=== PATIENT | female | born 1985 | race African-American/Black ===

== ENCOUNTER → 2018-02-21 | Outpatient (CLI) | payer MEDICAID ==
[2018-02-21 18:01] LABS: ABSOLUTE LYMPHOCYTES (AUTO) 1.9 10^3/uL (0.5-4.7); ABSOLUTE MONOCYTES (AUTO) 0.6 10^3/uL (0.1-1.4); ABSOLUTE NEUT (AUTO) 5.1 10^3/uL (1.7-8.2); BASOPHILS % (AUTO) 0.2 % (0-2); EOSINOPHILS % (AUTO) 0.3 % (0-6); HEMATOCRIT 37.4 % (36.0-47.0); HEMOGLOBIN 12.9 g/dL (12.0-15.5); LYMPHOCYTES % (AUTO) 25.3 % (13-45); MEAN CORPUSCULAR HEMOGLOBIN 32.4 pg (27.0-33.4); MEAN CORPUSCULAR HGB CONC 34.4 g/dL (32.0-36.0); MEAN CORPUSCULAR VOLUME 94 fl (80-97); MONOCYTES % (AUTO) 7.2 % (3-13); PLATELET COUNT 279 10^3/uL (150-450); RED BLOOD COUNT 3.97 10^6/uL (3.72-5.28); RED CELL DISTRIBUTION WIDTH 14.1 % (11.5-14.0); TOTAL CELLS COUNTED % (AUTO) 100 %; WHITE BLOOD COUNT 7.6 10^3/uL (4.0-10.5)
[2018-02-21 18:15] LABS: ALANINE AMINOTRANSFERASE 9 U/L (9-52); ALBUMIN 3.8 g/dL (3.5-5.0); ALKALINE PHOSPHATASE 42 U/L (38-126); ANION GAP 12 (5-19); ASPARTATE AMINO TRANSFERASE 14 U/L (14-36); BILIRUBIN,DIRECT 0.2 mg/dL (0.0-0.4); BILIRUBIN,TOTAL 0.3 mg/dL (0.2-1.3); BLOOD UREA NITROGEN 7 mg/dL (7-20); CALCIUM 9.5 mg/dL (8.4-10.2); CARBON DIOXIDE 23 mmol/L (22-30); CHLORIDE 101 mmol/L (98-107); GLUCOSE 77 mg/dL (75-110); POTASSIUM 4.2 mmol/L (3.6-5.0); SODIUM 135.7 mmol/L (137-145); TOTAL PROTEIN 7.6 g/dL (6.3-8.2); URIC ACID 3.9 mg/dL (2.5-6.2)
[2018-02-22 11:23] LABS: FREE T3 4.04 pg/mL (2.77-5.27); FREE T4 (FREE THYROXINE) 1.23 ng/dL (0.78-2.19)
[2018-02-23 16:39] LABS: HGB A 97.4 % (96.4-98.8); HGB A2 2.6 % (1.8-3.2); HGB SOLUBILITY RESULT Negative (Negative)
[2018-02-24 16:40] LABS: CHLAMYDIA PREQUOT NAA Negative (Negative)
[2018-02-25 12:15] LABS: GONOCOCCUS PREQUOT (CYTO) NAA Negative (Negative)
== END ==
LOC: OD 16:48
PROVIDERS: ATTEND Student in an Organized Health Care Education/Training Program
DX: O24.311 Unspecified pre-existing diabetes mellitus in pregnancy, first trimester (principal); Z3A.00 Weeks of gestation of pregnancy not specified; Z13.29 Encounter for screening for other suspected endocrine disorder; Z13.0 Encounter for screening for diseases of the blood and blood-forming organs and certain disorders involving the immune mechanism; Z11.3 Encounter for screening for infections with a predominantly sexual mode of transmission; Z11.51 Encounter for screening for human papillomavirus (HPV); Z12.4 Encounter for screening for malignant neoplasm of cervix
CPT/HCPCS: 36415; 80053; 83020; 83036; 83615; 84439; 84443; 84481; 84550; 85025; 86701; 86702; 87086; 87491; 87522; 87591; 87624; 88142

== ENCOUNTER 2018-07-15 15:22 | Outpatient (CLI) | payer MEDICAID ==
--- NOTE | 2018-07-15 16:12 | Non Stress Test Report ---
Non Stress Test Datetime Report Generated by CPN: 07/15/2018 16:12 INDICATION Indication for Study: Other Indication for Study (NST) Other: lc sent from the office for repeat due to gdm VITAL SIGNS Temperature - NST: 98.2 RESP - NST: 15 MONITORING Monitor Explained: Monitor Explained; Test Explained; Patient Verbalized Understanding Time on Monitor: 07/15/2018 15:38 Time off Monitor: 07/15/2018 16:05 NST Duration: 27 NST INTERVENTIONS NST Interventions: PO Hydration; Reposition Patient Physician Notified NST: A Gutierrez CNM BABY A: [id number] BABY A Movement : Present Contraction Frequency : 0 FHR Baseline : 125 Accelerations : 15X15 Decelerations : None Variability : Moderate 6-25bpm NST Review: Meets Criteria for Reactive NST NST Review and Verified By : Anuj Renteria RN NST Results: Reactive NST REPORT Report Trigger: Send Report
== END 2018-07-15 16:15 | disposition home or self-care (01) ==
LOC: LC 15:22
PROVIDERS: ATTEND Obstetrics & Gynecology
PROC: 4A1HXCZ Monitoring of Products of Conception, Cardiac Rate, External Approach (ICD-10-PCS; principal; 2018-07-15)
DX: O24.419 Gestational diabetes mellitus in pregnancy, unspecified control (principal); Z3A.32 32 weeks gestation of pregnancy
CPT/HCPCS: 59025

== ENCOUNTER 2018-07-18 12:46 | Outpatient (CLI) | payer MEDICAID ==
--- NOTE | 2018-07-18 13:29 | Non Stress Test Report ---
Non Stress Test Datetime Report Generated by CPN: 07/18/2018 13:28 DEMOGRAPHIC EGA NST: 34.3 INDICATION Indication for Study: Diabetes Mellitus; Ordered by Provider Indication for Study (NST) Other: PRE-E W/U MONITORING Monitor Explained: Monitor Explained; Test Explained; Patient Verbalized Understanding Time on Monitor: 07/18/2018 13:07 Time off Monitor: 07/18/2018 13:27 NST Duration: 20 NST INTERVENTIONS NST Interventions: PO Hydration; Reposition Patient BABY A: [id number] BABY A Movement : Present Contraction Frequency : absent FHR Baseline : 120 Accelerations : 15X15 Decelerations : None NST Review: Meets Criteria for Reactive NST NST Review and Verified By : BL ROULUND, RN NST Results: Reactive NST REPORT Report Trigger: Send Report
[2018-07-18 13:50] LABS: ABSOLUTE EOSINOPHILS # (AUTO) 0.1 10^3/uL (0.0-0.6); ABSOLUTE LYMPHOCYTES (AUTO) 1.3 10^3/uL (0.5-4.7); ABSOLUTE MONOCYTES (AUTO) 0.5 10^3/uL (0.1-1.4); ABSOLUTE NEUT (AUTO) 2.7 10^3/uL (1.7-8.2); EOSINOPHILS % (AUTO) 2.8 % (0-6); HEMOGLOBIN 11.1 g/dL (12.0-15.5); LYMPHOCYTES % (AUTO) 27.3 % (13-45); MEAN CORPUSCULAR HEMOGLOBIN 31.4 pg (27.0-33.4); MEAN CORPUSCULAR HGB CONC 33.7 g/dL (32.0-36.0); MEAN CORPUSCULAR VOLUME 93 fl (80-97); MONOCYTES % (AUTO) 10.6 % (3-13); PLATELET COUNT 225 10^3/uL (150-450); RED BLOOD COUNT 3.54 10^6/uL (3.72-5.28); RED CELL DISTRIBUTION WIDTH 13.5 % (11.5-14.0); SEGMENTED NEUTROPHILS % (AUTO) 58.3 % (42-78); TOTAL CELLS COUNTED % (AUTO) 100 %; WHITE BLOOD COUNT 4.7 10^3/uL (4.0-10.5)
[2018-07-18 13:56] LABS: APPEARANCE,URINE SLIGHTLY-CLOUDY; BILIRUBIN,URINE NEGATIVE (NEGATIVE); COLOR,URINE STRAW; GLUCOSE, URINE NEGATIVE (NEGATIVE); KETONES,URINE NEGATIVE (NEGATIVE); LEUKOCYTE ESTERASE,URINE NEGATIVE (NEGATIVE); NITRITE,URINE NEGATIVE (NEGATIVE); PROTEIN,URINE NEGATIVE (NEGATIVE); URINE SPECIFIC GRAVITY 1.004; UROBILINOGEN,URINE NEGATIVE mg/dL (<2.0)
[2018-07-18 14:08] LABS: ALANINE AMINOTRANSFERASE 31 U/L (9-52); ALKALINE PHOSPHATASE 183 U/L (38-126); ANION GAP 5 (5-19); ASPARTATE AMINO TRANSFERASE 26 U/L (14-36); BILIRUBIN,TOTAL 0.3 mg/dL (0.2-1.3); BLOOD UREA NITROGEN 6 mg/dL (7-20); CALCIUM 9.1 mg/dL (8.4-10.2); CARBON DIOXIDE 23 mmol/L (22-30); CHLORIDE 106 mmol/L (98-107); GLUCOSE 83 mg/dL (75-110); POTASSIUM 4.2 mmol/L (3.6-5.0); TOTAL PROTEIN 6.4 g/dL (6.3-8.2); URIC ACID 4.2 mg/dL (2.5-6.2)
[2018-07-18 14:17] LABS: UR PRO/CREAT RATIO RESULT 0.8 mg/mg (0.0-0.2); URINE CREATININE 23.6 mg/dL (16-327); URINE PROTEIN 18.4 mg/dL (<12)
[2018-07-18 14:29] LABS: URINE AMPHETAMINES SCREEN NEGATIVE; URINE BARBITURATES SCREEN NEGATIVE; URINE BENZODIAZEPINES SCREEN NEGATIVE; URINE COCAINE SCREEN NEGATIVE; URINE MARIJUANA (THC) SCREEN NEGATIVE; URINE METHADONE SCREEN NEGATIVE; URINE PHENCYCLIDINE SCREEN NEGATIVE
== END 2018-07-18 13:57 | disposition home or self-care (01) ==
LOC: LC 12:46
PROVIDERS: ATTEND Obstetrics & Gynecology
PROC: 4A1HXCZ Monitoring of Products of Conception, Cardiac Rate, External Approach (ICD-10-PCS; principal; 2018-07-18)
DX: O24.913 Unspecified diabetes mellitus in pregnancy, third trimester (principal); Z3A.34 34 weeks gestation of pregnancy; Z79.84 Long term (current) use of oral hypoglycemic drugs
CPT/HCPCS: 36415; 59025; 80053; 80307; 81001; 82570; 83615; 84156; 84550; 85025

== ENCOUNTER → 2018-07-25 | Outpatient (CLI) | payer MEDICAID ==
[2018-07-25 13:34] LABS: ABSOLUTE EOSINOPHILS # (AUTO) 0.1 10^3/uL (0.0-0.6); ABSOLUTE LYMPHOCYTES (AUTO) 1.3 10^3/uL (0.5-4.7); ABSOLUTE MONOCYTES (AUTO) 0.7 10^3/uL (0.1-1.4); ABSOLUTE NEUT (AUTO) 3.5 10^3/uL (1.7-8.2); BASOPHILS % (AUTO) 0.5 % (0-2); EOSINOPHILS % (AUTO) 1.9 % (0-6); HEMATOCRIT 33.1 % (36.0-47.0); HEMOGLOBIN 11.1 g/dL (12.0-15.5); LYMPHOCYTES % (AUTO) 23.6 % (13-45); MEAN CORPUSCULAR HEMOGLOBIN 31.1 pg (27.0-33.4); MEAN CORPUSCULAR HGB CONC 33.5 g/dL (32.0-36.0); MEAN CORPUSCULAR VOLUME 93 fl (80-97); MONOCYTES % (AUTO) 11.7 % (3-13); PLATELET COUNT 209 10^3/uL (150-450); RED BLOOD COUNT 3.56 10^6/uL (3.72-5.28); RED CELL DISTRIBUTION WIDTH 13.8 % (11.5-14.0); SEGMENTED NEUTROPHILS % (AUTO) 62.3 % (42-78); TOTAL CELLS COUNTED % (AUTO) 100 %; WHITE BLOOD COUNT 5.6 10^3/uL (4.0-10.5)
[2018-07-25 13:52] LABS: ASPARTATE AMINO TRANSFERASE 22 U/L (14-36); URIC ACID 3.9 mg/dL (2.5-6.2)
[2018-07-25 13:55] LABS: UR PRO/CREAT RATIO RESULT 1.1 mg/mg (0.0-0.2); URINE CREATININE 21.2 mg/dL (16-327); URINE PROTEIN 23.1 mg/dL (<12)
== END ==
LOC: LAB 13:05
PROVIDERS: ATTEND Registered Nurse Women's Health Care, Ambulatory
DX: O13.9 Gestational [pregnancy-induced] hypertension without significant proteinuria, unspecified trimester (principal)
CPT/HCPCS: 36415; 82565; 82570; 83615; 84156; 84450; 84550; 85025

== ENCOUNTER → 2018-07-25 | Outpatient (CLI) | payer MEDICAID | LOC: LC 12:36 | PROVIDERS: ATTEND Obstetrics & Gynecology | DX: Z53.9 Procedure and treatment not carried out, unspecified reason (principal) ==

== ENCOUNTER → 2018-07-28 | Outpatient (CLI) | payer MEDICAID ==
[2018-07-28 17:45] LABS: ABSOLUTE EOSINOPHILS # (AUTO) 0.1 10^3/uL (0.0-0.6); ABSOLUTE LYMPHOCYTES (AUTO) 1.3 10^3/uL (0.5-4.7); ABSOLUTE MONOCYTES (AUTO) 0.5 10^3/uL (0.1-1.4); ABSOLUTE NEUT (AUTO) 3.5 10^3/uL (1.7-8.2); BASOPHILS % (AUTO) 0.5 % (0-2); EOSINOPHILS % (AUTO) 1.1 % (0-6); HEMATOCRIT 32.3 % (36.0-47.0); HEMOGLOBIN 10.8 g/dL (12.0-15.5); LYMPHOCYTES % (AUTO) 23.4 % (13-45); MEAN CORPUSCULAR HGB CONC 33.5 g/dL (32.0-36.0); MEAN CORPUSCULAR VOLUME 93 fl (80-97); MONOCYTES % (AUTO) 9.5 % (3-13); PLATELET COUNT 216 10^3/uL (150-450); RED BLOOD COUNT 3.49 10^6/uL (3.72-5.28); RED CELL DISTRIBUTION WIDTH 13.9 % (11.5-14.0); SEGMENTED NEUTROPHILS % (AUTO) 65.5 % (42-78); TOTAL CELLS COUNTED % (AUTO) 100 %; WHITE BLOOD COUNT 5.4 10^3/uL (4.0-10.5)
[2018-07-28 17:56] LABS: APPEARANCE,URINE SLIGHTLY-CLOUDY; BILIRUBIN,URINE NEGATIVE (NEGATIVE); COLOR,URINE YELLOW; GLUCOSE, URINE NEGATIVE (NEGATIVE); KETONES,URINE TRACE mg/dL (NEGATIVE); LEUKOCYTE ESTERASE,URINE NEGATIVE (NEGATIVE); NITRITE,URINE NEGATIVE (NEGATIVE); PROTEIN,URINE 30 mg/dL (NEGATIVE); URINE SPECIFIC GRAVITY 1.019
[2018-07-28 18:07] LABS: ALANINE AMINOTRANSFERASE 21 U/L (9-52); ALBUMIN 3.3 g/dL (3.5-5.0); ALKALINE PHOSPHATASE 195 U/L (38-126); ANION GAP 6 (5-19); ASPARTATE AMINO TRANSFERASE 25 U/L (14-36); BILIRUBIN,DIRECT 0.2 mg/dL (0.0-0.4); BILIRUBIN,TOTAL 0.5 mg/dL (0.2-1.3); BLOOD UREA NITROGEN 8 mg/dL (7-20); CALCIUM 9.3 mg/dL (8.4-10.2); CARBON DIOXIDE 24 mmol/L (22-30); CHLORIDE 105 mmol/L (98-107); GLUCOSE 86 mg/dL (75-110); POTASSIUM 4.1 mmol/L (3.6-5.0); SODIUM 134.5 mmol/L (137-145); TOTAL PROTEIN 6.7 g/dL (6.3-8.2); URIC ACID 4.5 mg/dL (2.5-6.2)
[2018-07-28 18:09] LABS: URINE AMPHETAMINES SCREEN NEGATIVE; URINE BARBITURATES SCREEN NEGATIVE; URINE BENZODIAZEPINES SCREEN NEGATIVE; URINE COCAINE SCREEN NEGATIVE; URINE MARIJUANA (THC) SCREEN NEGATIVE; URINE METHADONE SCREEN NEGATIVE; URINE PHENCYCLIDINE SCREEN NEGATIVE
[2018-07-28 18:14] LABS: UR PRO/CREAT RATIO RESULT 0.2 mg/mg (0.0-0.2); URINE CREATININE 136.9 mg/dL (16-327); URINE PROTEIN 32.5 mg/dL (<12)
--- NOTE | 2018-07-28 19:17 | Non Stress Test Report ---
Non Stress Test Datetime Report Generated by CPN: 07/28/2018 19:17 DEMOGRAPHIC EGA NST: 35.6 INDICATION Indication for Study: Polyhydramnios; Diabetes Mellitus; Ordered by Provider Indication for Study (NST) Other: DR METZGER REVIEWED STRIP MONITORING Monitor Explained: Monitor Explained; Test Explained; Patient Verbalized Understanding Time on Monitor: 07/28/2018 18:23 Time off Monitor: 07/28/2018 18:54 NST Duration: 31 NST INTERVENTIONS NST Interventions: PO Hydration; Reposition Patient Physician Notified NST: Dr Metzger BABY A: [id number] BABY A Movement : Present Contraction Frequency : NONE FHR Baseline : 135 Accelerations : 15X15 Decelerations : None Variability : Moderate 6-25bpm NST Review: Meets Criteria for Reactive NST NST Review and Verified By : Anuj Renteria RN NST Results: Reactive NST REPORT Report Trigger: Send Report
== END ==
LOC: LC 16:58
PROVIDERS: ATTEND Obstetrics & Gynecology Gynecology
PROC: 4A1HXCZ Monitoring of Products of Conception, Cardiac Rate, External Approach (ICD-10-PCS; principal; 2018-07-28)
DX: O40.3XX0 Polyhydramnios, third trimester, not applicable or unspecified (principal); Z3A.35 35 weeks gestation of pregnancy
CPT/HCPCS: 36415; 59025; 80053; 80307; 81001; 82570; 83615; 84156; 84550; 85025

== ENCOUNTER 2018-08-03 11:56 | Outpatient (CLI) | payer MEDICAID ==
--- NOTE | 2018-08-03 13:18 | Non Stress Test Report ---
Non Stress Test Datetime Report Generated by CPN: 08/03/2018 13:18 DEMOGRAPHIC EGA NST: 36.5 INDICATION Indication for Study: Ordered by Provider MONITORING Monitor Explained: Monitor Explained; Test Explained; Patient Verbalized Understanding Time on Monitor: 08/03/2018 12:08 Time off Monitor: 08/03/2018 13:00 NST Duration: 52 NST INTERVENTIONS NST Interventions: PO Hydration Physician Notified NST: ShardaEveline Marin, CNM BABY A: [id number] BABY A Movement : Present Contraction Frequency : Irregular FHR Baseline : 130 Accelerations : 15X15 Decelerations : None Variability : Moderate 6-25bpm NST Review: Meets Criteria for Reactive NST NST Review and Verified By : YOEL Zazueta Results: Reactive NST REPORT Report Trigger: Send Report
[2018-08-03 14:06] LABS: HEMATOCRIT 32.3 % (36.0-47.0); HEMOGLOBIN 10.8 g/dL (12.0-15.5); MEAN CORPUSCULAR HGB CONC 33.4 g/dL (32.0-36.0); MEAN CORPUSCULAR VOLUME 93 fl (80-97); PLATELET COUNT 199 10^3/uL (150-450); RED BLOOD COUNT 3.49 10^6/uL (3.72-5.28); RED CELL DISTRIBUTION WIDTH 14.1 % (11.5-14.0); WHITE BLOOD COUNT 4.9 10^3/uL (4.0-10.5)
[2018-08-03 14:16] LABS: UR PRO/CREAT RATIO RESULT 0.6 mg/mg (0.0-0.2); URINE CREATININE 41.6 mg/dL (16-327); URINE PROTEIN 24.6 mg/dL (<12)
[2018-08-03 14:23] LABS: ALANINE AMINOTRANSFERASE 30 U/L (9-52); ALBUMIN 3.4 g/dL (3.5-5.0); ALKALINE PHOSPHATASE 201 U/L (38-126); ANION GAP 7 (5-19); ASPARTATE AMINO TRANSFERASE 31 U/L (14-36); BILIRUBIN,DIRECT 0.1 mg/dL (0.0-0.4); BILIRUBIN,TOTAL 0.5 mg/dL (0.2-1.3); BLOOD UREA NITROGEN 4 mg/dL (7-20); CALCIUM 9.2 mg/dL (8.4-10.2); CARBON DIOXIDE 25 mmol/L (22-30); CHLORIDE 103 mmol/L (98-107); GLUCOSE 76 mg/dL (75-110); POTASSIUM 4.3 mmol/L (3.6-5.0); SODIUM 135.4 mmol/L (137-145); TOTAL PROTEIN 6.8 g/dL (6.3-8.2); URIC ACID 4.8 mg/dL (2.5-6.2)
== END 2018-08-03 13:50 | disposition home or self-care (01) ==
LOC: LC 11:56
PROVIDERS: ATTEND Obstetrics & Gynecology
PROC: 4A1HXCZ Monitoring of Products of Conception, Cardiac Rate, External Approach (ICD-10-PCS; principal; 2018-08-03)
DX: O24.419 Gestational diabetes mellitus in pregnancy, unspecified control (principal); O47.03 False labor before 37 completed weeks of gestation, third trimester; Z3A.36 36 weeks gestation of pregnancy
CPT/HCPCS: 36415; 59025; 80053; 82570; 83615; 84156; 84550; 85027

== ENCOUNTER 2018-08-08 21:39 | Inpatient (IN) | payer MEDICAID ==
[2018-08-08] MEDS ORDERED: DINOPROSTONE 10 MG VAGINAL INSERT.SR PV PRN ×2 (21:58→23:23)
[2018-08-08] MEDS ORDERED: RINGERS SOLUTION,LACTATED 300 ML IV ONE ×2 (21:58→23:23)
[2018-08-08] MEDS ORDERED: RINGERS SOLUTION,LACTATED 1,000 ML IV PRN ×2 (21:58→23:23)
[2018-08-08] MEDS ORDERED: MAG HYDROX/AL HYDROX/SIMETH SUSP 30 ML UDCUP PO PRN (21:59)
[2018-08-08] MEDS ORDERED: ACETAMINOPHEN 325 MG TABLET PO PRN (21:59)
[2018-08-08 22:37] LABS: ABSOLUTE LYMPHOCYTES (AUTO) 1.4 10^3/uL (0.5-4.7); ABSOLUTE MONOCYTES (AUTO) 0.6 10^3/uL (0.1-1.4); ABSOLUTE NEUT (AUTO) 2.6 10^3/uL (1.7-8.2); BASOPHILS % (AUTO) 0.4 % (0-2); EOSINOPHILS % (AUTO) 0.8 % (0-6); HEMATOCRIT 31.4 % (36.0-47.0); HEMOGLOBIN 10.7 g/dL (12.0-15.5); LYMPHOCYTES % (AUTO) 30.5 % (13-45); MEAN CORPUSCULAR HEMOGLOBIN 31.2 pg (27.0-33.4); MEAN CORPUSCULAR VOLUME 92 fl (80-97); MONOCYTES % (AUTO) 12.5 % (3-13); PLATELET COUNT 199 10^3/uL (150-450); RED BLOOD COUNT 3.41 10^6/uL (3.72-5.28); RED CELL DISTRIBUTION WIDTH 14.5 % (11.5-14.0); SEGMENTED NEUTROPHILS % (AUTO) 55.8 % (42-78); TOTAL CELLS COUNTED % (AUTO) 100 %; WHITE BLOOD COUNT 4.6 10^3/uL (4.0-10.5)
[2018-08-08 22:38] LABS: APPEARANCE,URINE TURBID; BILIRUBIN,URINE NEGATIVE (NEGATIVE); COLOR,URINE AMBER; GLUCOSE, URINE 50 mg/dL (NEGATIVE); KETONES,URINE NEGATIVE (NEGATIVE); LEUKOCYTE ESTERASE,URINE SMALL (NEGATIVE); NITRITE,URINE NEGATIVE (NEGATIVE); PROTEIN,URINE 100 mg/dL (NEGATIVE); URINE SPECIFIC GRAVITY 1.024
[2018-08-08 22:50] LABS: UR PRO/CREAT RATIO RESULT 0.4 mg/mg (0.0-0.2); URINE CREATININE 172.9 mg/dL (16-327); URINE PROTEIN 64.3 mg/dL (<12)
[2018-08-08 22:51] LABS: ALANINE AMINOTRANSFERASE 23 U/L (9-52); ALBUMIN 3.2 g/dL (3.5-5.0); ALKALINE PHOSPHATASE 184 U/L (38-126); ANION GAP 9 (5-19); ASPARTATE AMINO TRANSFERASE 22 U/L (14-36); BILIRUBIN,TOTAL 0.3 mg/dL (0.2-1.3); BLOOD UREA NITROGEN 8 mg/dL (7-20); CALCIUM 8.8 mg/dL (8.4-10.2); CARBON DIOXIDE 22 mmol/L (22-30); CHLORIDE 106 mmol/L (98-107); GLUCOSE 128 mg/dL (75-110); POTASSIUM 4.2 mmol/L (3.6-5.0); SODIUM 136.6 mmol/L (137-145); TOTAL PROTEIN 6.6 g/dL (6.3-8.2); URIC ACID 4.8 mg/dL (2.5-6.2); URINE AMPHETAMINES SCREEN NEGATIVE; URINE BARBITURATES SCREEN NEGATIVE; URINE BENZODIAZEPINES SCREEN NEGATIVE; URINE COCAINE SCREEN NEGATIVE; URINE MARIJUANA (THC) SCREEN NEGATIVE; URINE METHADONE SCREEN NEGATIVE; URINE PHENCYCLIDINE SCREEN NEGATIVE
[2018-08-08] MEDS ORDERED: OXYTOCIN/NORMAL SALINE 20 UNIT/1,000 ML RTUINJ IV PRN (23:23)
--- NOTE | 2018-08-08 23:24 | Admission Physical ---
Datetime Report Generated by CPN: 08/08/2018 23:24 CURRENT ADMISSION Chief Complaint: Scheduled Induction of Labor Indication for Induction: Maternal Diabetes; Polyhydramnios Indication for Induction- Other: suspected VSD Admit Impression : Term, Intrauterine ; Induction of Labor Admit Plan: Admit to Unit; Initiate Labor Induction Protocol ALLERGIES Medication Allergies: No Medication Allergies: No Known Allergies (08/08/2018) Latex: No Latex Allergies Food Allergies: No known allergies Environmental Allergies: SEASONAL OBSTETRICAL HISTORY EDC: 08/26/2018 00:00 : 4 Para: 2 Term: 0 : 2 SAB: 1 IAB: 0 Ectopic: 0 Livin Cesareans: 0 VBACs: 0 Multiple Births: 0 Gestational Diabetes: Yes Rh Sensitization: No Incompetent Cervix: Yes MIMA: No Infertility: No ART Treatment: No Uterine Anomaly: No IUGR: No Hx Previous C/S: No Macrosomia: No Hx Loss/Stillborn: No PIH: Unknown Hx : Yes Placenta Previa/Abruption: No Depression/PP Depression: Yes PTL/PROM: Yes Post Hemorrhage: No Current Procedures: Ultrasound; NST Obstetrical History Comments: G-1 2007 @ 32 weeks G-2 2015 SAB @ 8 weeks G-3 Current A2 diabetic on Metformin, Polyhydramnious, VSD 06/13/18 SEE RECORDS Alcohol: No Marijuana : Yes Marijuana Frequency: Occasional Previous Treatment: None Marijuana Comments: unsure of last use Cocaine: No Other Illicit Drugs: No Cigarettes: Former Smoker. [id number] MEDICAL HISTORY Diabetes: Yes Diabetes Type: Gestational Diabetes Blood Transfusion: No Pulmonary Disease (Asthma, TB): Yes Breast Disease: No Hypertension: Yes Account Development Specialist Surgery: No Heart Disease: No Hosp/Surgery: Yes Autoimmune Disorder: No Anesthetic Complications: No Kidney Disease: No Abnormal Pap Smear: No Neuro/Epilepsy: No Psychiatric Disorders: No Other Medical Diseases: No Hepatitis/Liver Disease: No Significant Family History: No Varicosities/Phlebitis: No Trauma/Violence : No Thyroid Dysfunction: No Medical History Comments: GDM on metformin, h/o asthma, previous hospitalization for childbirth. States mild PP depression, pt reports not taking medication; 2013-SAB per path report; 2014-PTD at 21 wks ( ) INFECTIOUS HISTORY Gonorrhea: No Genital Herpes: No Chlamydia: No Tuberculosis: No Syphilis: No Hepatitis: No HIV/AIDS Exposure: No Rash or Viral Illness: No HPV: No PHYSICAL EXAM General: Normal HEENT: Normal Neurologic: Normal Thyroid: Normal Heart: Normal Lungs: Normal Breast: Normal Back: Normal Abdomen: Normal Genitourinary Exam: Normal Extremities: Normal DTRs: Normal Pelvic Type: Adequate Vital Signs: Reviewed VAGINAL EXAM Dilatation: 0 Effacement: 0 Station: -3 MEMBRANES Pooling: Negative Membranes: Intact FETUS A EGA: 37.3 Monitoring: External US FHR- Baseline: 140 Variability: Moderate 6-25bpm Accelerations: 15X15 Decelerations: None FHR Category: Category I Estimated Weight (gm): 2800 Presentation: Vertex PLANS FOR LABOR AND DELIVERY Labor and Delivery: None Pain Management: None Feeding Preference: Formula Benefit of Breast Feed Discussed: Yes Circumcision: N/A INFORMED CONSENT Signature: with User ID: [email or web address]
[2018-08-09] MEDS ORDERED: MISOPROSTOL 0.2 MG TABLET ONE (02:33)
[2018-08-09] MEDS ORDERED: ZOLPIDEM TARTRATE 5 MG TABLET ONE (02:34)
[2018-08-09] MEDS ORDERED: OXYTOCIN/NORMAL SALINE 20 UNIT/1,000 ML RTUINJ ONE (02:34)
[2018-08-09] MEDS ORDERED: LIDOCAINE 1% INJ-PF (10 MG/ML) 30 ML SDV ONE (02:34)
--- NOTE | 2018-08-09 10:32 | L&D Progress Notes ---
PROGRESS NOTES Datetime Report Generated by CPN: 08/09/2018 10:32 PROGRESS NOTE Impression Other: cervidil IOL Informed Consent Obtained: Induction of Labor; Risks, Benefits and Alternatives Discussed Comment: Polyhydramnios. GDM on Metformin. VSD, Asthma, PPD. Cervidil due to be removed at 1300. Pt sitting up to eat. Vertex on US now. VAGINAL EXAM Dilatation: 0 Effacement: 0 Station: -3 LAST VAGINAL EXAM-NURSING Dilitation: 0.5 Dilitation: ft Effacement: 25 Effacement: thick Station: -4 Station: -4 MEMBRANES Pooling: Negative Membranes: Intact FETUS A Monitoring: External US Decelerations: None FHR Category: Category I : 37.3 Estimated Weight (gm): 2800 Presentation: Vertex SIGNATURE SIGNATURE: [id number];[id number];[id number] SIGNATURE: [id number];[id number] SIGNATURE: [id number] SIGNATURE: [id number] SIGNATURE: [id number] SIGNATURE: 14,[id number] Signature: with User ID: [email or web address]
[2018-08-09] MEDS ORDERED: OXYTOCIN/NORMAL SALINE 20 UNIT/1,000 ML RTUINJ IV PRN (14:20)
[2018-08-09] MEDS ORDERED: PENICILLIN G-K 5 MILLION UNIT VIAL IV ONE (15:16)
[2018-08-09] MEDS ORDERED: METFORMIN HCL 500 MG TABLET PO SCH (16:00)
[2018-08-09] MEDS: METFORMIN HCL 500 MG TABLET PO SCH (18:06)
[2018-08-09] MEDS ORDERED: NALBUPHINE HCL INJ 10 MG/1 ML AMPULE ONE (23:22)
[2018-08-09] MEDS ORDERED: NALBUPHINE HCL INJ 10 MG/1 ML AMPULE INJ ONE (23:43)
[2018-08-10] MEDS ORDERED: PENICILLIN G POTASSIUM 2,500,000 UNIT in DEXTROSE 5%-WATER 50 ML IV SCH (00:01)
[2018-08-10] MEDS ORDERED: PENICILLIN G-K 5 MILLION UNIT VIAL ONE (00:07)
--- NOTE | 2018-08-10 00:08 | L&D Progress Notes ---
PROGRESS NOTES Datetime Report Generated by CPN: 08/10/2018 00:08 Impression: Normal Progression of Labor Procedures: Sterile Vag Exam Plan: Continue Present Management; Induction Informed Consent Obtained: Vaginal Delivery; Induction of Labor; Risks, Benefits and Alternatives Discussed Vital Signs : Reviewed Comment: Pt has been on pitocin since approx 1400 after cervidil removed. Now cvx is 3-4cm and AROM performed with clear fluid after confirming vertex by US again. PCN for GBS prophy start now. Continue with pitocin and IOL. Anticipate Dilitation: 3-4 Dilitation: 2.0 Dilitation: utd Effacement: 50 Effacement: 50 Station: -3 Station: high Contractions: couplets noted Contractions: denies pain with contractions Contractions: couplet noted Contractions: unaware of conractions Contractions: irregular pattern with couplets noted. Denies pain with contractions Membranes: Ruptured Amniotic Fluid Color: Clear FHR - Baseline: 130 Monitoring: External US Variability: Moderate 6-25bpm Accelerations: 15X15 Decelerations: None FHR Category: Category I Signature: with User ID: [email or web address]
[2018-08-10] MEDS ORDERED: PROMETHAZINE HCL 25 MG SUPP.RECT PR PRN (03:16)
[2018-08-10] MEDS ORDERED: BENZOCAINE/MENTHOL AEROSOL SPRAY 56 ML TOP PRN (03:16)
[2018-08-10] MEDS ORDERED: NA PHOS,M-B/NA PHOS,DI-BA (ADULT) 133 ML ENEMA PR PRN (03:16)
[2018-08-10] MEDS ORDERED: DIPHENHYDRAMINE HCL 25 MG CAPSULE PO PRN (03:16)
[2018-08-10] MEDS ORDERED: ACETAMINOPHEN 650 MG SUPP.RECT PR PRN (03:16)
[2018-08-10] MEDS ORDERED: PROMETHAZINE HCL 25 MG TABLET PO PRN (03:16)
[2018-08-10] MEDS ORDERED: OXYTOCIN/NORMAL SALINE 20 UNIT/1,000 ML RTUINJ IV PRN (03:16)
[2018-08-10] MEDS ORDERED: IBUPROFEN 800 MG TABLET ONE ×2 (03:16→05:44)
[2018-08-10] MEDS ORDERED: DIBUCAINE 1% OINTMENT 28 GM TP PRN (03:16)
[2018-08-10] MEDS ORDERED: PSEUDOEPHEDRINE HCL 30 MG TABLET PO PRN (03:16)
[2018-08-10] MEDS ORDERED: ZOLPIDEM TARTRATE 5 MG TABLET PO PRN (03:16)
[2018-08-10] MEDS ORDERED: ACETAMINOPHEN 325 MG TABLET PO PRN (03:16)
[2018-08-10] MEDS ORDERED: MAGNESIUM HYDROXIDE SUSP 30 ML UDCUP PO PRN (03:16)
[2018-08-10] MEDS ORDERED: DIPH/PERTUSS(ACELL)/TETANUS VAC/PF 0.5 ML SYR (>=10YO) IM PRN (03:16)
[2018-08-10] MEDS ORDERED: PROMETHAZINE HCL INJ 25 MG/1 ML VIAL IV PRN (03:16)
[2018-08-10] MEDS ORDERED: ACETAMINOPHEN WITH CODEINE #3 TABLET PO PRN ×2 (03:16)
[2018-08-10] MEDS ORDERED: GLYCERIN/WITCH HAZEL LEAF 1 EACH MED..PAD TP PRN (03:16)
[2018-08-10] MEDS ORDERED: MEASLES,MUMPS&RUBELLA VACC/PF 0.5 ML VIAL SUBCUT PRN (03:16)
[2018-08-10] MEDS ORDERED: OXYTOCIN/NORMAL SALINE 20 UNIT/1,000 ML RTUINJ ONE (03:45)
--- NOTE | 2018-08-10 05:38 | Delivery Summary ---
Del Sum A-C Datetime Report Generated by CPN: 08/10/2018 04:54 DELIVERY PERSONNEL DELIVERY PERSONNEL: [id number] Delivery Doctor:: Emily Blum MD Labor and Delivery Nurse:: Lyudmila Meraz RNwelder apprentice gas Nurse:: Erin Taylor RN Nursery Nurse:: Rosalee Houston RN Nursery Nurse:: Susannah Aguillon RN Cube Machine Tender/PRODUCTION ENGINEER TRACK: Lyudmila Maher, ST MATERNAL INFORMATION Delivery Anesthesia: None Medications After Delivery: Pitocin Drip 20 Units/1000ml NSS Maternal Complications: None Provider Comments: VFI delivered in FRANSICO presentation. No nuchal cord. At delivery of the head patient closed legs and scooted to top of bed. Shoulders and body delivered without difficulty once maternal effort resumed with proper positioning. Placenta delivered intact spontaneously. Mother and baby stable upon provider leaving the room. No perineal lacerations. FF at U. LABOR SUMMARY EDC: 08/26/2018 00:00 No. Babies in Womb: 1 Attempted: No Labor Anesthesia: None LABOR INFORMATION Reason for Induction: Maternal Diabetes; Indicated by Testing; Polyhydramnios Onset of Labor: 08/09/2018 23:53 Complete Dilatation: 08/10/2018 02:53 Cervical Ripening Agents: Cervidil Oxytocin: Induction Group B Beta Strep: Positive Antibiotics # of Doses: 1 Antibiotics Time of Last Dose: 001 Name of Antibiotic Given: PCN Steroids Given: None Reason Steroids Not Administered: Not Applicable MEMBRANES Membranes Rupture Method: Artificial Rupture of Membranes: 08/09/2018 23:53 Length of Rupture (hr): 3.13 Amniotic Fluid Color: Clear Amniotic Fluid Amount: Moderate Amniotic Fluid Odor: Normal STAGES OF LABOR Stage 1 hr: 3 Stage 1 min: 0 Stage 2 hr: 0 Stage 2 min: 8 Stage 3 hr: 0 Stage 3 min: 2 Total Time in Labor hr: 3 Total Time in Labor min: 10 VAGINAL DELIVERY Episiotomy: None Laceration #1: None Laceration Extension #1: N/A Laceration Repair: Yes Laceration Repair Note: no perineal laceration Sponge Count Correct: N/A Sharps Count Correct: N/A CSECTION DELIVERY Primary Indication: N/A Secondary Indication: N/A CSection Incidence: N/A Labor: N/A Elective: N/A CSection Incision: N/A BABY A INFORMATION Delivery Date/Time: 08/10/2018 03:01 Method of Delivery: Vaginal Born in Route : No : N/A Forceps: N/A Vacuum Extraction: N/A Shoulder Dystocia : No PRESENTATION/POSITION BABY A Presentation: Cephalic Cephalic Presentation: Vertex Vertex Position: Right Occipital Anterior Breech Presentation: N/A PLACENTA INFORMATION BABY A Placenta Delivery Time : 08/10/2018 03:03 Placenta Method of Delivery: Spontaneous Placenta Status: Delivered SCORES BABY A Heart Rate 1 min: >100 bpm Resp Effort 1 min: Good Cry Reflex Irritability 1 min: Cough or Sneeze or Pulls Away Muscle Tone 1 min: Active Motion Color 1 min: Body [place], Extremities Blue Resuscitation Effort 1 min: Tactile Stimulation SCORE 1 MIN: 9 Heart Rate 5 min: >100 bpm Resp Effort 5 min: Good Cry Reflex Irritability 5 min: Cough or Sneeze or Pulls Away Muscle Tone 5 min: Active Motion Color 5 min: Body [place], Extremities Blue Resuscitation Effort 5 min: Tactile Stimulation SCORE 5 MIN: 9 INFORMATION BABY A Gestational Age at Delivery: 37.5 Gestational Status: Early Term- 37- 38.6 Weeks Infant Outcome : Liveborn Infant Condition : Stable Sex: Female IDENTIFICATION BABY A Infant Verification Date/Time: 08/10/2018 03:12 ID Band Number: [id number] Mother's Name Verified: Yes RN Verifying : C. Gentilin, RN E. Jilek, RN WEIGHT/LENGTH BABY A Infant Birthweight (gm): 3120 Infant Weight (lb): 6 Infant Weight (oz): 14 Length (in): 19.75 Length (cm): 50.17 CORD INFORMATION BABY A No. Cord Vessels: 3 Nuchal Cord : N/A Cord Blood Taken: Yes-For Storage (Mom's Blood type +) ASSESSMENT BABY A Skin to Skin: No BABY B INFORMATION : N/A SIGNATURES Signature: with User ID: [email or web address]
[2018-08-10] MEDS: ZOLPIDEM TARTRATE 5 MG TABLET PO SCH ×3 (05:40→21:11)
[2018-08-10] MEDS: IBUPROFEN 800 MG TABLET PO SCH ×3 (05:46→21:09)
[2018-08-10] MEDS: SENNOSIDES/DOCUSATE 8.6-50 MG 1 EACH TABLET PO SCH (09:48)
[2018-08-10] MEDS: FAMOTIDINE 20 MG TABLET PO SCH ×2 (09:48→21:09)
[2018-08-10] MEDS: FERROUS SULFATE 325 MG TABLET PO SCH ×2 (09:48→17:30)
[2018-08-10] MEDS: PRENATAL VITAMIN W DHA CAPSULE PO SCH (09:49)
[2018-08-10] MEDS: DOCUSATE SODIUM 100 MG CAPSULE PO SCH ×2 (09:50→17:30)
[2018-08-10] MEDS: METFORMIN HCL 500 MG TABLET PO SCH ×2 (09:51→17:29)
[2018-08-11] MEDS: IBUPROFEN 800 MG TABLET PO SCH ×3 (05:07→22:17)
[2018-08-11 07:06] LABS: HEMATOCRIT 24.7 % (36.0-47.0); MEAN CORPUSCULAR HEMOGLOBIN 31.4 pg (27.0-33.4); MEAN CORPUSCULAR HGB CONC 34.1 g/dL (32.0-36.0); MEAN CORPUSCULAR VOLUME 92 fl (80-97); PLATELET COUNT 154 10^3/uL (150-450); RED BLOOD COUNT 2.69 10^6/uL (3.72-5.28); RED CELL DISTRIBUTION WIDTH 14.5 % (11.5-14.0); WHITE BLOOD COUNT 8.2 10^3/uL (4.0-10.5)
[2018-08-11 07:09] LABS: HEMOGLOBIN 8.4 g/dL (12.0-15.5)
[2018-08-11] MEDS: METFORMIN HCL 500 MG TABLET PO SCH ×2 (09:37→18:47)
[2018-08-11] MEDS: DOCUSATE SODIUM 100 MG CAPSULE PO SCH ×2 (09:37→18:48)
[2018-08-11] MEDS: SENNOSIDES/DOCUSATE 8.6-50 MG 1 EACH TABLET PO SCH (09:37)
[2018-08-11] MEDS: PRENATAL VITAMIN W DHA CAPSULE PO SCH (09:37)
[2018-08-11] MEDS: FAMOTIDINE 20 MG TABLET PO SCH ×2 (09:37→22:17)
[2018-08-11] MEDS: FERROUS SULFATE 325 MG TABLET PO SCH ×2 (09:37→18:48)
--- NOTE | 2018-08-11 10:35 | PDOC PROGRESS REPORT ---
Subjective-OB Progress Note for:: 08/11/18 Subjective: Doing well, sitting on side of bed, voiding, ambulating Physical Exam (OB) Vital Signs: Temp Pulse Resp BP Pulse Ox 98.4 F 84 18 142/89 H 100 08/11/18 08:02 08/11/18 08:02 08/11/18 08:02 08/11/18 08:02 08/11/18 08:02 Intake & Output 08/10/18 08/11/18 08/12/18 06:59 06:59 06:59 Intake Total 100 580 Balance 100 580 - PIH/Pre-Eclampsia DTR's: 2 + Clonus: Negative Headache: Absent Epigastric Pain: No Visual Changes: No - Lochia Lochia Amount: Small 10-25 ml Lochia Color: Rubra/Red - Abdomen Description: Soft Hernia Present: No Fundal Description: Firm Fundal Height: u/u - u/2 Objective-Diagnostic Laboratory: 08/11/18 06:53 08/08/18 22:10 08/11/18 06:53 WBC 8.2 RBC 2.69 L Hgb 8.4 L D Hct 24.7 L MCV 92 MCH 31.4 MCHC 34.1 RDW 14.5 H Plt Count 154 Assessment and Plan(PN) - Assessment and Plan (1) Anemia Qualifiers: Anemia type: iron deficiency Is this a current diagnosis for this admission?: Yes (2) Carrier of group B Streptococcus Is this a current diagnosis for this admission?: Yes (3) Polyhydramnios affecting in third trimester Is this a current diagnosis for this admission?: Yes (4) Gestational diabetes mellitus, antepartum Qualifiers: Gestational diabetes mellitus control: oral hypoglycemic-controlled Qualified Code(s): O24.415 - Gestational diabetes mellitus in , con trolled by oral hypoglycemic drugs Is this a current diagnosis for this admission?: Yes (5) Vaginal delivery Is this a current diagnosis for this admission?: Yes - Time Spent with Patient Time with patient: Less than 15 minutes Medications reviewed and adjusted accordingly: Yes - Disposition Anticipated Discharge: Home Within: within 24 hours
[2018-08-11] MEDS: ZOLPIDEM TARTRATE 5 MG TABLET PO SCH (22:17)
[2018-08-12] MEDS: IBUPROFEN 800 MG TABLET PO SCH ×2 (06:49→13:20)
[2018-08-12] MEDS: FERROUS SULFATE 325 MG TABLET PO SCH ×2 (10:33→18:10)
[2018-08-12] MEDS: DOCUSATE SODIUM 100 MG CAPSULE PO SCH ×2 (10:33→18:10)
[2018-08-12] MEDS: METFORMIN HCL 500 MG TABLET PO SCH ×2 (10:33→18:11)
[2018-08-12] MEDS: PRENATAL VITAMIN W DHA CAPSULE PO SCH (10:34)
[2018-08-12] MEDS: FAMOTIDINE 20 MG TABLET PO SCH (10:34)
[2018-08-12] MEDS: SENNOSIDES/DOCUSATE 8.6-50 MG 1 EACH TABLET PO SCH (10:34)
--- NOTE | 2018-08-12 10:34 | PDOC PROGRESS REPORT ---
Subjective-OB Progress Note for:: 08/12/18 Subjective: Ready for discharge. Physical Exam (OB) Vital Signs: Temp Pulse Resp BP Pulse Ox 98.2 F 84 15 140/78 H 100 08/12/18 07:57 08/12/18 07:57 08/12/18 07:57 08/12/18 07:57 08/12/18 07:57 Intake & Output 08/11/18 08/12/18 08/13/18 06:59 06:59 06:59 Intake Total 100 1080 Balance 100 1080 - PIH/Pre-Eclampsia DTR's: 1 + Clonus: Negative Headache: Absent Epigastric Pain: No Visual Changes: No - Lochia Lochia Amount: Scant < 10 ml Lochia Color: Rubra/Red - Abdomen Description: Soft, Round Hernia Present: No Bowel Sounds: Normoactive Flatus Presence: Present Stool: Yes Fundal Description: Firm, Midline Fundal Height: u/u - u/2 Objective-Diagnostic Laboratory: 08/11/18 06:53 08/08/18 22:10 Assessment and Plan(PN) - Time Spent with Patient Medications reviewed and adjusted accordingly: Yes - Disposition Anticipated Discharge: Home
--- NOTE | 2018-08-12 10:41 | PDOC DISCHARGE SUMMARY ---
Final Diagnosis Discharge Date: 08/12/18 - Final Diagnosis (1) Delivery normal Is this a current diagnosis for this admission?: Yes (2) Anemia Is this a current diagnosis for this admission?: Yes (3) Carrier of group B Streptococcus Is this a current diagnosis for this admission?: Yes (4) Polyhydramnios affecting in third trimester Is this a current diagnosis for this admission?: Yes (5) Gestational diabetes mellitus, antepartum Is this a current diagnosis for this admission?: Yes Discharge Data - Discharge Medication Home Medications: Pnv,Calcium 72/Iron/Folic Acid [Pnv Plus Multivit Tab] 1 tab PO DAILY 03/16/15 Ferrous Sulfate [Feosol 325 mg Tablet] 325 mg PO BID tablet 08/12/18 Gestational Age: 37.5 wks Reason(s) for Admission: Induction of Labor, Gestional Diabetes Procedures: Ultrasound Intrapartum Procedure(s): Spontaneous Vaginal Delivery - Data Baby 1 Female at 1 minute: 9 at 5 minutes: 9 Weight: 3.118 kg Home with Mother: Yes Complications: No - Diagnosis Test Laboratory: Temp Pulse Resp BP Pulse Ox 98.2 F 84 15 140/78 H 100 08/12/18 07:57 08/12/18 07:57 08/12/18 07:57 08/12/18 07:57 08/12/18 07:57 08/08/18 08/08/18 08/11/18 22:10 22:10 06:53 RBC 3.41 L 2.69 L Hgb 10.7 L 8.4 L D Hct 31.4 L 24.7 L Urine Opiates Screen NEGATIVE - Discharge information/Instructions Discharge Activity: Activity As Tolerated, Balance Activity w/Rest, Pelvic Rest, Slowly Increase Activity, No tub bath Discharge Diet: Regular Disposition: HOME, SELF-CARE Follow up with: [facility] in: 4, Weeks
[2018-08-12 12:37] VITALS: BP 141/86
== END 2018-08-12 19:30 | disposition home or self-care (01) | DRG 805 ==
LOC: LR 21:39 → 2S 08-10 05:27
PROVIDERS: ADMIT Obstetrics & Gynecology; ATTEND Obstetrics & Gynecology
PROC: 10E0XZZ Delivery of Products of Conception, External Approach (ICD-10-PCS; principal; 2018-08-10)
PROC: 3E033VJ Introduction of Other Hormone into Peripheral Vein, Percutaneous Approach (ICD-10-PCS; 2018-08-10)
PROC: 10907ZC Drainage of Amniotic Fluid, Therapeutic from Products of Conception, Via Natural or Artificial Opening (ICD-10-PCS; 2018-08-10)
PROC: 4A1HX4Z Monitoring of Products of Conception, Cardiac Electrical Activity, External Approach (ICD-10-PCS; 2018-08-10)
DX: O40.3XX0 Polyhydramnios, third trimester, not applicable or unspecified (principal); O34.33 Maternal care for cervical incompetence, third trimester; Z37.0 Single live birth; O99.324 Drug use complicating childbirth; O24.415 Gestational diabetes mellitus in pregnancy, controlled by oral hypoglycemic drugs; Z3A.37 37 weeks gestation of pregnancy; O99.02 Anemia complicating childbirth; O99.824 Streptococcus B carrier state complicating childbirth; D50.9 Iron deficiency anemia, unspecified; Z87.891 Personal history of nicotine dependence; F12.90 Cannabis use, unspecified, uncomplicated
CPT/HCPCS: 36415; 80053; 80307; 81001; 82570; 82962; 83615; 84156; 84550; 85025; 85027; 86592; 86850; 86900; 86901; 88307; 94760; C1726; J2300; J2540; J2590; J3490